=== PATIENT | female | born 1940 | race African-American/Black ===

== ENCOUNTER 2024-10-08 13:19 | Emergency (ER) | payer MEDICARE, OTHER ==
[~2024-10-08] VITALS: Ht 152.4 cm; Wt 55.0 kg
[2024-10-08 13:24] VITALS: O2SAT 98
[2024-10-08 15:23] VITALS: BP 126/70; PULSE 83; RESP 18; TEMP 36.61404; O2SAT 99
== END 2024-10-08 15:24 | disposition home or self-care (01) ==
LOC: ER 13:19
DX: S09.90XA Unspecified injury of head, initial encounter (principal); E11.9 Type 2 diabetes mellitus without complications; I10 Essential (primary) hypertension; V89.2XXA Person injured in unspecified motor-vehicle accident, traffic, initial encounter; Y93.89 Activity, other specified; Y92.89 Other specified places as the place of occurrence of the external cause; Y99.8 Other external cause status
CPT/HCPCS: 99284